=== PATIENT | female | born 1950 | race Caucasian/White ===

== ENCOUNTER → 2016-08-11 | Day surgery (SDC) | payer BC ==
[~2016-08-11] VITALS: Ht 162.6 cm; Wt 125.3 kg
[~2016-08-11] MED LIST: AMBIEN5 MG PO; AMOXICILLIN500 MG PO; BENADRYL25 MG PO; CALCIUM WITH V1 EAC1 PO; COLACE100 MG PO; DAILY VITE1 EACH PO; ESTER-C 1,0001 EACH PO; FLONASE 50 MCG/16 GM NOSE; GLUCOPHAGE500 MG PO; IRON18 MG PO; K-TAB 10MEQ10 MEQ PO; LASIX40 MG PO; LIPITOR40 MG PO; LISINOPRIL-HCT1 EAC2 PO; LOPRESSOR50 MG PO; NORCO 5-325 TA1 EACH PO; OMEPRAZOLE20 MG PO; SINUS RINSE NS; ULTRAM50 MG PO; XARELTO20 MG PO
--- NOTE | ~2016-08-11 | OR ---
PATIENT'S NAME: ALBERTO GUERRIER [facility] AGE: 65 Y [address] ROOM: [place] [id number] [place]ATION: [facility] [place] DATE: 08/11/2016 OR/Procedure Report DISCHARGE DATE: FAMILY PHYSICIAN: Taz Schmidt MD ATTENDING PHYSICIAN: BENITO TUCKER SURGEON: Benito Tucker MD [employer] ENGINEERING TEACHER: DATE OF PROCEDURE: 08/11/2016 PREOPERATIVE DIAGNOSIS: Left lower extremity varicose veins. POSTOPERATIVE DIAGNOSIS: Left lower extremity varicose veins. PROCEDURE: 15-20 stab phlebectomies of the left lower extremity. MOLECULAR TECHNOLOGIST: LEONEL Finley. ANESTHESIA: General. ESTIMATED BLOOD LOSS: 100 mL. OPERATIVE FINDINGS: Good removal of large segments of varicose veins. DESCRIPTION OF PROCEDURE: The patient was brought to the operating room, placed supine on the operating table, placed under general anesthesia, prepped and draped in a sterile manner. Preoperative time-out was performed. The patient received preoperative antibiotics prior to incision. We made a series of approximately 15-20 stabs using an 11 blade along the previously marked areas of varicosity of the left lower extremity. We then used a trena hook to hook the veins and then used a mosquito clamps to clamp on them and forcefully pulled the veins from the surface. After each phlebectomy, we held pressure for 5 minutes until hemostasis was achieved. Once we had removed all the segments that we could find, we irrigated of the leg and then used Dermabond to seal the stab phlebectomies. The leg was then wrapped with Kerlix and Evan wraps. The patient tolerated the procedure well, awoken in the operating room, and transferred to recovery room. BENITO TUCKER MD FKM/modl PATIENT'S NAME: ALBERTO GUERRIER [facility] AGE: 65 Y [address] ROOM: [place] [id number] LOCATION: [facility] [place] ADMIT DATE: 08/11/2016 OR/Procedure Report DISCHARGE DATE: FAMILY PHYSICIAN: Taz Schmidt MD ATTENDING PHYSICIAN: BENITO TUCKER /[id number] d: 08/11/162233 t: 08/14/16926, OPERATIVE SUMMARY
[2016-08-11 09:22] LABS: BASOPHIL % 0.5 %; EOSINOPHIL # 0.1 K/uL (0.0-0.5); EOSINOPHIL % 1.5 %; HEMOGLOBIN 12.1 g/dL (10.0-15.0); IMMATURE GRANULOCYTE % 0.5 %; LYMPHOCYTE % 23.9 %; MCH 29.9 pg (27.0-34.0); MCHC 31.8 gm/dL (32.0-36.5); MCV 93.8 fl (83.0-98.0); MONOCYTE # 0.4 K/uL (0.0-1.0); MONOCYTE % 4.3 %; MPV 10.3 fl (9.4-12.4); NEUTROPHIL # (ANC) 5.7 K/uL (1.8-7.8); NEUTROPHIL % 69.3 %; NRBC % 0 /100WBC (0-0.00); PLATELET COUNT 238 K/uL (150-450); RBC 4.05 M/uL (3.50-5.50); RDW-CV 13.3 % (11.9-14.6); WBC 8.2 K/uL (4.0-11.0)
[2016-08-11 09:41] LABS: ALBUMIN 3.5 gm/dL (3.5-5.0); ANION GAP 12.7 (10.0-19.0); CALCIUM 8.9 mg/dL (8.5-10.5); CREATININE 1.2 mg/dL (0.5-1.1); POTASSIUM 3.7 mMol/L (3.7-5.1); TOTAL BILIRUBIN 0.5 mg/dL (0.0-1.5); TOTAL PROTEIN 7.5 g/dL (6.0-8.4)
== END | disposition disaster alternative care site (69) ==
LOC: GPOC 08-05 09:00 → GSDC 07:00
PROVIDERS: Surgery Vascular Surgery
PROC: 06BY0ZZ Excision of Lower Vein, Open Approach (ICD-10-PCS; principal; 2016-08-11)
DX: I83.92 Asymptomatic varicose veins of left lower extremity (principal); I87.2 Venous insufficiency (chronic) (peripheral); I48.0 Paroxysmal atrial fibrillation; I10 Essential (primary) hypertension; G47.30 Sleep apnea, unspecified; K21.9 Gastro-esophageal reflux disease without esophagitis; E78.5 Hyperlipidemia, unspecified; Z90.49 Acquired absence of other specified parts of digestive tract; Z98.890 Other specified postprocedural states; Z79.899 Other long term (current) drug therapy
CPT/HCPCS: J0690; J2405; J7030